=== PATIENT | male | born 1950 | race Caucasian/White ===

== ENCOUNTER 2023-06-13 04:16 | Day surgery (SDC) | payer OTHER ==
[2023-06-07 15:35] VITALS: BMI 29.7
[2023-06-13] MEDS ORDERED: IBUPROFEN 800 MG/8 ML IJ IVPB SCH (16:30)
[2023-06-13] MEDS ORDERED: DEXTROSE 5%-0.45% SALINE 1,000 ML IV SCH (16:30)
[2023-06-13] MEDS ORDERED: LIDOCAINE HCL 1%, 10 MG/ML (20ML VIAL) ONE (16:39)
[2023-06-13] MEDS ORDERED: FENTANYL CITRATE/PF 50 MCG/ML VIAL ONE ×2 (16:43→17:57)
[2023-06-13] MEDS ORDERED: PROPOFOL 40 ML ONE (16:43)
[2023-06-13] MEDS ORDERED: MIDAZOLAM HCL 2 MG/2 ML SINGLE DOSE VIAL ONE (16:43)
[2023-06-13] MEDS ORDERED: SUCCINYLCHOLINE CHLORIDE 200 MG/10 ML SYRINGE ONE (16:45)
[2023-06-13] MEDS: ceFAZolin SODIUM 1 GM VIAL IVPB ONE (16:55)
[2023-06-13] MEDS: LIDOCAINE HCL 1%, 10 MG/ML (50 mL VIAL) NR ONE (17:01)
[2023-06-13] MEDS: ACETAMINOPHEN INJECTION 100 ML IVPB ONE (17:30)
[2023-06-13] MEDS: ACETAMINOPHEN 1000 MG/100 ML BAG IVPB ONE (17:30)
[2023-06-13] MEDS ORDERED: ONDANSETRON 4 MG/2 ML VIAL IVPUSH PRN (17:32)
[2023-06-13] MEDS ORDERED: LACTATED RINGERS SOLUTION 1,000 ML IV SCH (17:45)
[2023-06-13 19:28] VITALS: RESP 16; TEMP 97.5
[2023-06-13 20:03] VITALS: BP 134/78; PULSE 62
== END 2023-06-13 19:40 | disposition home or self-care (01) ==
LOC: JASU-SURG 04:16
PROVIDERS: ATTEND Urology
PROC: 0VB70ZZ Excision of Left Tunica Vaginalis, Open Approach (ICD-10-PCS; principal; 2023-06-13 16:00)
DX: N43.3 Hydrocele, unspecified (principal)
CPT/HCPCS: 82962; 88302-TC; 94760; J0131

== ENCOUNTER 2024-06-24 13:31 | Inpatient (IN) | payer OTHER ==
[2024-06-24 13:43] VITALS: BMI 30.1
[2024-06-24] MEDS: ACETAMINOPHEN 1000 MG/100 ML BAG IVPB ONE (15:21)
[2024-06-24] MEDS: ONDANSETRON 4 MG/2 ML VIAL IVPUSH ONE (15:21)
[2024-06-24] MEDS: SODIUM CHLORIDE 0.9% 500 ML INFUS.BAG IV ONE (15:21)
[2024-06-24] MEDS ORDERED: ACETAMINOPHEN INJECTION 100 ML ONE (15:22)
[2024-06-24] MEDS ORDERED: ONDANSETRON 4 MG/2 ML VIAL ONE (15:22)
[2024-06-24 15:38] LABS: HEMATOCRIT 43.4 % (40.1-51.0); HEMOGLOBIN 15.1 g/dL (13.7-17.5); MCHC 34.8 g/dl (32.3-36.5); MEAN CELL VOLUME 84.4 fl (79.0-92.2); MEAN PLT VOLUME 10.5 fl (9.4-12.4); PLATELET COUNT 230 x10^3/uL (163-337); RDW 12.6 % (12.2-16.6)
[2024-06-24 15:46] LABS: INR 1.07 (0.83-1.09); PROTHROMBIN TIME (PATIENT) 11.7 SEC (9.7-13.0)
[2024-06-24 15:48] LABS: ACTIVATED PTT 31.2 SECONDS (25.2-36.5)
[2024-06-24 16:13] LABS: POTASSIUM 3.7 mmol/L (3.5-5.1)
[2024-06-24 16:16] LABS: ALBUMIN 3.4 g/dl (3.4-5.0); BLOOD UREA NITROGEN 15.1 mg/dL (7-18); CALCIUM 9.4 mg/dL (8.5-10.1)
[2024-06-24 16:19] LABS: CREATININE 1.2 mg/dL (0.55-1.3)
[2024-06-24 16:21] LABS: BILIRUBIN,TOTAL 0.7 mg/dL (0.2-1)
[2024-06-24] MEDS ORDERED: PIPERACILLIN/TAZOB 4.5 GM 4.5 GM/100 ML BAG IVPB ONE (19:24)
[2024-06-24] MEDS: PIPERACILLIN/TAZOB 4.5 GM 4.5 GM in DEXTROSE 5%-WATER 100 ML IVPB ONE (19:57)
[2024-06-24] MEDS ORDERED: metFORMIN HCL 500 MG TABLET (FP) PO SCH (22:00)
[2024-06-24] MEDS: ACETAMINOPHEN 1000 MG/100 ML BAG IVPB PRN (22:30)
[2024-06-24] MEDS: ATORVASTATIN CA 20 MG TABLET (FP) PO SCH (22:32)
[2024-06-24] MEDS: INSULIN ASPART SLIDING SCALE (NOVOLOG) 1 VIAL SQ SCH (22:32)
[2024-06-24] MEDS: SODIUM CHLORIDE 1,000 ML IV STA (22:32)
[2024-06-24] MEDS: amLODIPine BESYLATE 10 MG TABLET (FP) PO ONE (23:05)
[2024-06-25] MEDS: PIPERACILLIN/TAZOB 3.375 GM 3.375 GM in DEXTROSE 5%-WATER - 50 ML IVPB SCH ×2 (01:59→19:32)
[2024-06-25 07:59] LABS: HEMATOCRIT 41.3 % (40.1-51.0); HEMOGLOBIN 14.4 g/dL (13.7-17.5); MCHC 34.9 g/dl (32.3-36.5); MEAN CELL VOLUME 85.2 fl (79.0-92.2); MEAN PLT VOLUME 10.8 fl (9.4-12.4); PLATELET COUNT 219 x10^3/uL (163-337); RDW 12.6 % (12.2-16.6)
[2024-06-25 08:11] LABS: POTASSIUM 3.4 mmol/L (3.5-5.1)
[2024-06-25 08:16] LABS: BLOOD UREA NITROGEN 12.3 mg/dL (7-18); CALCIUM 9.2 mg/dL (8.5-10.1)
[2024-06-25 08:17] LABS: ALBUMIN 3.1 g/dl (3.4-5.0)
[2024-06-25 08:20] LABS: CREATININE 1.1 mg/dL (0.55-1.3)
[2024-06-25 08:21] LABS: BILIRUBIN,TOTAL 1.3 mg/dL (0.2-1)
[2024-06-25 08:22] LABS: TOT PROT 6.6 g/dl (6.4-8.2)
[2024-06-25 08:25] LABS: INR 1.15 (0.83-1.09); PROTHROMBIN TIME (PATIENT) 12.7 SEC (9.7-13.0)
[2024-06-25] MEDS: KCL 10 MEQ IVPB 10 MEQ/100 ML INFUS.BAG IVPB SCH (09:39)
[2024-06-25] MEDS: SODIUM CHLORIDE 1,000 ML IV SCH (12:04)
[2024-06-25] MEDS: POLYETHYLENE GLYCOL (HEALTHYLAX) 3350 17 GM PACKET PO SCH (15:13)
[2024-06-25 15:39] LABS: EPI CELLS 15 /uL (0-25.1); HYALINE CASTS 1 /uL (0-3.1); URINE APPEARANCE CLEAR; URINE BACTERIA 6 /uL (0-1359); URINE BILIRUBIN NEGATIVE (NEGATIVE); URINE COLOR YELLOW; URINE GLUCOSE (UA) TRACE (NEGATIVE); URINE KETONE 2+ (NEGATIVE); URINE LEUK ESTERASE NEGATIVE (NEGATIVE); URINE NITRITE NEGATIVE (NEGATIVE); URINE PROTEIN 3+ (NEGATIVE); URINE WBC 8 /uL (0-25.8)
[2024-06-25 15:46] LABS: URINE RBC 40.3 /uL (0-23.9)
[2024-06-25] MEDS: PIPERACILLIN/TAZOB 3.375 GM 50 ML IVPB SCH (18:12)
[2024-06-25] MEDS: LISINOPRIL 10 MG TABLET PO SCH (21:27)
[2024-06-26] MEDS: ACETAMINOPHEN 1000 MG/100 ML BAG IVPB PRN (08:15)
[2024-06-26 08:17] LABS: BASOPHILS # 0.04 x10^3/uL (0.01-0.08); EOSINOPHIL % 0.1 % (0.8-7.0); EOSINOPHILS # 0.01 x10^3/uL (0.04-0.54); HEMATOCRIT 42.5 % (40.1-51.0); HEMOGLOBIN 14.6 g/dL (13.7-17.5); MCHC 34.4 g/dl (32.3-36.5); MEAN CELL VOLUME 84.5 fl (79.0-92.2); MEAN PLT VOLUME 10.9 fl (9.4-12.4); MONOCYTE # 0.67 x10^3/uL (0.30-0.82); MONOCYTE % 3.8 % (5.3-12.2); PLATELET COUNT 266 x10^3/uL (163-337); RDW 12.7 % (12.2-16.6)
[2024-06-26 08:37] LABS: MAGNESIUM 1.7 mg/dL (1.8-2.4)
[2024-06-26 08:38] LABS: BLOOD UREA NITROGEN 12.4 mg/dL (7-18); CALCIUM 8.9 mg/dL (8.5-10.1)
[2024-06-26 08:41] LABS: CREATININE 1.2 mg/dL (0.55-1.3)
[2024-06-26 08:42] LABS: BILIRUBIN,TOTAL 1.7 mg/dL (0.2-1)
[2024-06-26] MEDS: amLODIPine BESYLATE 10 MG TABLET (FP) PO SCH (09:09)
[2024-06-26] MEDS: KCL 10 MEQ IVPB 10 MEQ/100 ML INFUS.BAG IVPB SCH (10:56)
[2024-06-26] MEDS: MAGNESIUM 2GM/50ML STERILE WATER IVPB IVPB ONE ×2 (13:15→14:34)
[2024-06-26] MEDS: PEG 3350/NA SULF BICARB CL/KCL 4000 ML SOLN.RECON PO ONE (17:29)
[2024-06-27 08:20] LABS: ABSOLUTE IMMATURE GRANULOCYTES 0.08 x10^3/uL (0.0-0.031); BASOPHILS # 0.02 x10^3/uL (0.01-0.08); EOSINOPHIL % 0.5 % (0.8-7.0); EOSINOPHILS # 0.06 x10^3/uL (0.04-0.54); HEMATOCRIT 35.3 % (40.1-51.0); HEMOGLOBIN 12.1 g/dL (13.7-17.5); INR 1.27 (0.83-1.09); MCHC 34.3 g/dl (32.3-36.5); MEAN CELL VOLUME 84.9 fl (79.0-92.2); MEAN PLT VOLUME 10.3 fl (9.4-12.4); MONOCYTE # 0.63 x10^3/uL (0.30-0.82); MONOCYTE % 4.9 % (5.3-12.2); PLATELET COUNT 228 x10^3/uL (163-337); RDW 12.6 % (12.2-16.6)
[2024-06-27 08:36] LABS: CHLORIDE 108 mmol/L (98-107); SODIUM 142 mmol/L (136-145)
[2024-06-27 08:39] LABS: BLOOD UREA NITROGEN 10.2 mg/dL (7-18); CALCIUM 8.5 mg/dL (8.5-10.1)
[2024-06-27 08:40] LABS: CO2 27 mmol/L (21-32); GLUCOSE,RANDOM 163 mg/dL (74-106); MAGNESIUM 1.9 mg/dL (1.8-2.4)
[2024-06-27 08:43] LABS: SGOT/AST 13 U/L (15-37); SGPT/ALT 18 U/L (13-61)
[2024-06-27 08:45] LABS: BILIRUBIN,TOTAL 0.6 mg/dL (0.2-1); TOT PROT 5.7 g/dl (6.4-8.2)
[2024-06-27 08:46] LABS: ALBUMIN 2.4 g/dl (3.4-5.0); ALK PHOS 47 U/L (45-117); ANION GAP 7 mmol/L (4-13); POTASSIUM 2.6 mmol/L (3.5-5.1)
[2024-06-27] MEDS: KCL 10 MEQ IVPB 10 MEQ/100 ML INFUS.BAG IVPB SCH (09:27)
[2024-06-27 11:10] LABS: CARCINOEMBRYONIC ANTIGEN 11.2 ng/mL (0.0-4.7)
[2024-06-27 16:47] LABS: POTASSIUM 3.4 mmol/L (3.5-5.1)
[2024-06-27 16:49] LABS: ALBUMIN 2.5 g/dl (3.4-5.0); BLOOD UREA NITROGEN 10.6 mg/dL (7-18); CALCIUM 8.8 mg/dL (8.5-10.1)
[2024-06-27 16:53] LABS: CREATININE 1.3 mg/dL (0.55-1.3)
[2024-06-27 16:54] LABS: BILIRUBIN,TOTAL 0.6 mg/dL (0.2-1); TOT PROT 6.1 g/dl (6.4-8.2)
[2024-06-27] MEDS: POTASSIUM CHLORIDE ORAL LIQUID 20 MEQ/15 ML PO ONE (18:23)
[2024-06-27] MEDS: ACETAMINOPHEN 1000 MG/100 ML BAG IVPB PRN (21:34)
[2024-06-28 08:11] LABS: BASOPHILS # 0.02 x10^3/uL (0.01-0.08); EOSINOPHIL % 1.8 % (0.8-7.0); EOSINOPHILS # 0.22 x10^3/uL (0.04-0.54); HEMATOCRIT 35.4 % (40.1-51.0); HEMOGLOBIN 12.5 g/dL (13.7-17.5); MCHC 35.3 g/dl (32.3-36.5); MEAN CELL VOLUME 84.7 fl (79.0-92.2); MONOCYTE # 0.69 x10^3/uL (0.30-0.82); MONOCYTE % 5.8 % (5.3-12.2); PLATELET COUNT 279 x10^3/uL (163-337); RDW 12.6 % (12.2-16.6)
[2024-06-28 08:44] LABS: CALCIUM 8.4 mg/dL (8.5-10.1)
[2024-06-28 08:45] LABS: ALBUMIN 2.3 g/dl (3.4-5.0); BLOOD UREA NITROGEN 11.7 mg/dL (7-18); MAGNESIUM 1.8 mg/dL (1.8-2.4)
[2024-06-28 08:48] LABS: CREATININE 1.1 mg/dL (0.55-1.3)
[2024-06-28 08:50] LABS: BILIRUBIN,TOTAL 0.6 mg/dL (0.2-1); TOT PROT 5.6 g/dl (6.4-8.2)
[2024-06-28] MEDS: POTASSIUM CHLORIDE ORAL LIQUID 20 MEQ/15 ML PO ONE (10:55)
[2024-06-28] MEDS: HEPARIN NA (PORCINE) 5,000 UNITS/ML 1ML VIAL SQ SCH (21:12)
[2024-06-29] MEDS: ACETAMINOPHEN 1000 MG/100 ML BAG IVPB PRN (02:18)
[2024-06-29 08:52] LABS: ABSOLUTE IMMATURE GRANULOCYTES 0.05 x10^3/uL (0.0-0.031); BASOPHILS # 0.05 x10^3/uL (0.01-0.08); EOSINOPHIL % 3.1 % (0.8-7.0); EOSINOPHILS # 0.32 x10^3/uL (0.04-0.54); HEMATOCRIT 38.9 % (40.1-51.0); HEMOGLOBIN 12.9 g/dL (13.7-17.5); MCHC 33.2 g/dl (32.3-36.5); MEAN CELL VOLUME 88.2 fl (79.0-92.2); MEAN PLT VOLUME 10.6 fl (9.4-12.4); MONOCYTE # 0.72 x10^3/uL (0.30-0.82); MONOCYTE % 6.9 % (5.3-12.2); PLATELET COUNT 245 x10^3/uL (163-337); RDW 12.8 % (12.2-16.6)
[2024-06-29 09:06] LABS: CHLORIDE 104 mmol/L (98-107); SODIUM 138 mmol/L (136-145)
[2024-06-29 09:21] LABS: ALBUMIN 2.2 g/dl (3.4-5.0); BLOOD UREA NITROGEN 12.3 mg/dL (7-18); CALCIUM 8.5 mg/dL (8.5-10.1); CO2 26 mmol/L (21-32); GLUCOSE,RANDOM 254 mg/dL (74-106); MAGNESIUM 1.6 mg/dL (1.8-2.4)
[2024-06-29 09:24] LABS: SGPT/ALT 17 U/L (13-61)
[2024-06-29 09:25] LABS: SGOT/AST 17 U/L (15-37)
[2024-06-29 09:26] LABS: ANION GAP 8 mmol/L (4-13); BILIRUBIN,TOTAL 0.6 mg/dL (0.2-1); POTASSIUM 2.9 mmol/L (3.5-5.1); TOT PROT 5.5 g/dl (6.4-8.2)
[2024-06-29 09:27] LABS: ALK PHOS 47 U/L (45-117)
[2024-06-29] MEDS: POTASSIUM CHLORIDE TABS 20 MEQ TABLET.ER (FP) PO ONE (10:33)
[2024-06-29] MEDS: KCL 10 MEQ IVPB 10 MEQ/100 ML INFUS.BAG IVPB SCH (11:11)
[2024-06-29] MEDS: MAGNESIUM 1GM/D5W 100ML - 100 ML IVPB IVPB ONE (12:25)
[2024-06-30 08:16] LABS: BASOPHILS # 0.03 x10^3/uL (0.01-0.08); EOSINOPHIL % 2.3 % (0.8-7.0); EOSINOPHILS # 0.31 x10^3/uL (0.04-0.54); HEMATOCRIT 38.1 % (40.1-51.0); HEMOGLOBIN 13.3 g/dL (13.7-17.5); MCHC 34.9 g/dl (32.3-36.5); MEAN CELL VOLUME 84.1 fl (79.0-92.2); MEAN PLT VOLUME 10.2 fl (9.4-12.4); MONOCYTE # 0.82 x10^3/uL (0.30-0.82); MONOCYTE % 6.1 % (5.3-12.2); PLATELET COUNT 326 x10^3/uL (163-337); RDW 12.5 % (12.2-16.6)
[2024-06-30 08:36] LABS: POTASSIUM 3.1 mmol/L (3.5-5.1)
[2024-06-30 08:39] LABS: ALBUMIN 2.5 g/dl (3.4-5.0); BLOOD UREA NITROGEN 9.9 mg/dL (7-18); MAGNESIUM 1.8 mg/dL (1.8-2.4)
[2024-06-30 08:42] LABS: CREATININE 0.9 mg/dL (0.55-1.3)
[2024-06-30 08:44] LABS: BILIRUBIN,TOTAL 0.4 mg/dL (0.2-1); TOT PROT 6.2 g/dl (6.4-8.2)
[2024-06-30] MEDS: POTASSIUM CHLORIDE TABS 20 MEQ TABLET.ER (FP) PO SCH (09:17)
[2024-07-01 09:19] LABS: MEAN PLT VOLUME 9.6 fl (9.4-12.4)
[2024-07-01 09:21] LABS: HEMATOCRIT 41.5 % (40.1-51.0); MCHC 33.7 g/dl (32.3-36.5); MEAN CELL VOLUME 85.7 fl (79.0-92.2); PLATELET COUNT 441 x10^3/uL (163-337); RDW 12.7 % (12.2-16.6)
[2024-07-01 09:27] LABS: INR 1.26 (0.83-1.09); PROTHROMBIN TIME (PATIENT) 13.9 SEC (9.7-13.0)
[2024-07-01 09:42] LABS: POTASSIUM 4.2 mmol/L (3.5-5.1)
[2024-07-01 09:50] LABS: BLOOD UREA NITROGEN 12.4 mg/dL (7-18); CALCIUM 9.2 mg/dL (8.5-10.1)
[2024-07-01 09:54] LABS: CREATININE 1.1 mg/dL (0.55-1.3)
[2024-07-01] MEDS: POLYETHYLENE GLYCOL 3350 255 GM BTL PO ONE (10:12)
[2024-07-01] MEDS: metroNIDAZOLE 500 MG TABLET PO SCH (12:41)
[2024-07-01] MEDS: NEOMYCIN SO4 500 MG TABLET PO SCH (12:41)
[2024-07-01] MEDS: BISACODYL 5 MG TABLET.DR (FP) PO ONE (15:59)
[2024-07-02 08:30] LABS: ABSOLUTE IMMATURE GRANULOCYTES 0.09 x10^3/uL (0.0-0.031); BASOPHILS # 0.05 x10^3/uL (0.01-0.08); EOSINOPHIL % 1.3 % (0.8-7.0); EOSINOPHILS # 0.16 x10^3/uL (0.04-0.54); HEMATOCRIT 42.7 % (40.1-51.0); HEMOGLOBIN 14.7 g/dL (13.7-17.5); MCHC 34.4 g/dl (32.3-36.5); MEAN CELL VOLUME 84.1 fl (79.0-92.2); MEAN PLT VOLUME 9.3 fl (9.4-12.4); MONOCYTE % 6.3 % (5.3-12.2); PLATELET COUNT 498 x10^3/uL (163-337); RDW 12.4 % (12.2-16.6)
[2024-07-02 08:35] LABS: INR 1.27 (0.83-1.09); PROTHROMBIN TIME (PATIENT) 13.8 SEC (9.7-13.0)
[2024-07-02 08:37] LABS: ACTIVATED PTT 34.6 SECONDS (25.2-36.5)
[2024-07-02 08:47] LABS: POTASSIUM 3.3 mmol/L (3.5-5.1)
[2024-07-02 08:52] LABS: BLOOD UREA NITROGEN 11.5 mg/dL (7-18); CALCIUM 9.2 mg/dL (8.5-10.1); MAGNESIUM 1.9 mg/dL (1.8-2.4)
[2024-07-02 08:56] LABS: CREATININE 1.1 mg/dL (0.55-1.3); PHOSPHOROUS 3.7 mg/dL (2.5-4.9)
[2024-07-02] MEDS ORDERED: ACETAMINOPHEN INJECTION 100 ML ONE (11:44)
[2024-07-02] MEDS ORDERED: SUCCINYLCHOLINE CHLORIDE 200 MG/10 ML SYRINGE ONE (11:49)
[2024-07-02] MEDS ORDERED: ROCURONIUM BROMIDE 50 MG/5 ML SYRINGE ONE ×2 (11:49→16:52)
[2024-07-02] MEDS ORDERED: MIDAZOLAM HCL 2 MG/2 ML SINGLE DOSE VIAL ONE (15:24)
[2024-07-02] MEDS ORDERED: PROPOFOL 20 ML ONE ×2 (15:26→17:50)
[2024-07-02] MEDS ORDERED: HEPARIN NA (PORCINE) 5,000 UNITS/ML 1ML VIAL ONE (15:31)
[2024-07-02] MEDS ORDERED: cefOXitin SODIUM 2 GM VIAL (RESTRICTED TO ID) IVPB ONE (15:31)
[2024-07-02] MEDS: cefOXitin SODIUM 2 GM VIAL (RESTRICTED TO ID) IVPB ONE ×2 (16:35)
[2024-07-02] MEDS ORDERED: KETAMINE HCL 200 MG/20 ML VIAL ONE (17:46)
[2024-07-02] MEDS ORDERED: NEOSTIGMINE METHYLSULFATE 0.5 MG/1 ML - 10 ML MDV ONE (19:20)
[2024-07-02] MEDS: BUPIVACAINE HCL/PF 0.25% (2.5MG/ML) 10 ML VIAL IJ ONE ×3 (19:20)
[2024-07-02] MEDS ORDERED: HYDROmorphone HCl 2 MG/ML VIAL ONE (19:44)
[2024-07-02] MEDS ORDERED: ONDANSETRON 4 MG/2 ML VIAL IVPUSH PRN ×4 (20:01→20:38)
[2024-07-02] MEDS ORDERED: LACTATED RINGERS SOLUTION 1,000 ML IV SCH (20:15)
[2024-07-02] MEDS ORDERED: HYDROmorphone *PCA* 10MG/50ML DISP.SYRIN PCA SCH (20:15)
[2024-07-02] MEDS: HYDROmorphone *PCA* 10MG/50ML DISP.SYRIN PCA SCH ×2 (20:20→20:33)
[2024-07-02] MEDS ORDERED: HYDROmorphone *PCA* 10MG/50ML DISP.SYRIN ONE (20:22)
[2024-07-02] MEDS: ACETAMINOPHEN 1000 MG/100 ML BAG IVPB SCH (20:23)
[2024-07-02] MEDS: LACTATED RINGERS SOLUTION 1,000 ML IV SCH ×2 (20:37→21:06)
[2024-07-02] MEDS: INSULIN ASPART SLIDING SCALE (NOVOLOG) 1 VIAL SQ SCH (21:25)
[2024-07-02] MEDS ORDERED: ATORVASTATIN CA 20 MG TABLET (FP) PO SCH (22:00)
[2024-07-02] MEDS ORDERED: INSULIN ASPART SLIDING SCALE (NOVOLOG) 1 VIAL SQ SCH (22:00)
[2024-07-02] MEDS ORDERED: LISINOPRIL 10 MG TABLET PO SCH (22:00)
[2024-07-02] MEDS: LISINOPRIL 10 MG TABLET PO SCH (22:50)
[2024-07-02] MEDS: ATORVASTATIN CA 20 MG TABLET (FP) PO SCH (22:50)
[2024-07-03] MEDS: ACETAMINOPHEN 1000 MG/100 ML BAG IVPB SCH (02:17)
[2024-07-03] MEDS: CEFOXITIN SODIUM/DEXTROSE,ISO 2 GM/50 ML BAG IVPB SCH ×2 (03:23→07:27)
[2024-07-03] MEDS: WATER IVPB SCH (05:00)
[2024-07-03] MEDS: CEFOXITIN SODIUM IVPB SCH (05:00)
[2024-07-03] MEDS: DEXTROSE 5% IVPB SCH (05:00)
[2024-07-03 08:58] LABS: ABSOLUTE IMMATURE GRANULOCYTES 0.12 x10^3/uL (0.0-0.031); BASOPHILS # 0.04 x10^3/uL (0.01-0.08); HEMATOCRIT 39.9 % (40.1-51.0); HEMOGLOBIN 13.8 g/dL (13.7-17.5); MCHC 34.6 g/dl (32.3-36.5); MEAN CELL VOLUME 84.7 fl (79.0-92.2); MEAN PLT VOLUME 9.4 fl (9.4-12.4); MONOCYTE # 0.93 x10^3/uL (0.30-0.82); PLATELET COUNT 460 x10^3/uL (163-337); RDW 12.4 % (12.2-16.6)
[2024-07-03 09:19] LABS: POTASSIUM 3.8 mmol/L (3.5-5.1)
[2024-07-03 09:26] LABS: ALBUMIN 2.2 g/dl (3.4-5.0); CALCIUM 8.5 mg/dL (8.5-10.1)
[2024-07-03 09:27] LABS: MAGNESIUM 1.8 mg/dL (1.8-2.4)
[2024-07-03 09:29] LABS: CREATININE 1.2 mg/dL (0.55-1.3)
[2024-07-03 09:30] LABS: PHOSPHOROUS 4.3 mg/dL (2.5-4.9)
[2024-07-03 09:31] LABS: BILIRUBIN,TOTAL 0.4 mg/dL (0.2-1); TOT PROT 5.6 g/dl (6.4-8.2)
[2024-07-03] MEDS: amLODIPine BESYLATE 10 MG TABLET (FP) PO SCH (09:58)
[2024-07-03] MEDS: ACETAMINOPHEN 500 MG TABLET (FP) PO SCH (09:58)
[2024-07-03] MEDS ORDERED: amLODIPine BESYLATE 10 MG TABLET (FP) PO SCH (10:00)
[2024-07-03] MEDS ORDERED: HEPARIN NA (PORCINE) 5,000 UNITS/ML 1ML VIAL SQ SCH ×2 (14:00)
[2024-07-03] MEDS: KETOROLAC TROMETHAMINE 15 MG/ML VIAL IVPUSH PRN (14:13)
[2024-07-03] MEDS ORDERED: ACETAMINOPHEN 500 MG TABLET (FP) PO PRN ×2 (14:15)
[2024-07-03] MEDS: INSULIN ASPART SLIDING SCALE (NOVOLOG) 1 VIAL SQ SCH (17:47)
[2024-07-04 08:29] LABS: ABSOLUTE IMMATURE GRANULOCYTES 0.09 x10^3/uL (0.0-0.031); BASOPHILS # 0.02 x10^3/uL (0.01-0.08); EOSINOPHIL % 0.7 % (0.8-7.0); EOSINOPHILS # 0.11 x10^3/uL (0.04-0.54); HEMATOCRIT 36.8 % (40.1-51.0); HEMOGLOBIN 12.7 g/dL (13.7-17.5); MCHC 34.5 g/dl (32.3-36.5); MEAN CELL VOLUME 85.6 fl (79.0-92.2); MEAN PLT VOLUME 9.2 fl (9.4-12.4); MONOCYTE # 0.83 x10^3/uL (0.30-0.82); MONOCYTE % 5.3 % (5.3-12.2); PLATELET COUNT 458 x10^3/uL (163-337); RDW 12.7 % (12.2-16.6)
[2024-07-04 08:44] LABS: POTASSIUM 3.3 mmol/L (3.5-5.1)
[2024-07-04 08:46] LABS: CALCIUM 8.4 mg/dL (8.5-10.1)
[2024-07-04 08:47] LABS: ALBUMIN 2.2 g/dl (3.4-5.0); MAGNESIUM 1.9 mg/dL (1.8-2.4)
[2024-07-04 08:50] LABS: CREATININE 1.1 mg/dL (0.55-1.3); PHOSPHOROUS 2.1 mg/dL (2.5-4.9)
[2024-07-04 08:52] LABS: BILIRUBIN,TOTAL 0.4 mg/dL (0.2-1); TOT PROT 5.6 g/dl (6.4-8.2)
[2024-07-04] MEDS: POTASSIUM CHLORIDE ORAL LIQUID 20 MEQ/15 ML PO SCH (10:38)
[2024-07-04] MEDS: CEFOXITIN SODIUM 2 GM in DEXTROSE 5%-WATER 100 ML IVPB SCH (10:39)
[2024-07-04] MEDS: NAPH,MB-DB/K PH,MBDB POWDER PACKET PO SCH (10:39)
[2024-07-04] MEDS ORDERED: oxyCODONE HCL 5 MG TABLET PO PRN ×2 (11:23)
[2024-07-04] MEDS: KETOROLAC TROMETHAMINE 15 MG/ML VIAL IVPUSH SCH (17:17)
[2024-07-05 08:39] LABS: ABSOLUTE IMMATURE GRANULOCYTES 0.06 x10^3/uL (0.0-0.031); BASOPHILS # 0.02 x10^3/uL (0.01-0.08); EOSINOPHIL % 2.1 % (0.8-7.0); EOSINOPHILS # 0.28 x10^3/uL (0.04-0.54); HEMATOCRIT 35.8 % (40.1-51.0); HEMOGLOBIN 12.3 g/dL (13.7-17.5); MCHC 34.4 g/dl (32.3-36.5); MEAN CELL VOLUME 85.6 fl (79.0-92.2); MEAN PLT VOLUME 9.3 fl (9.4-12.4); MONOCYTE # 0.76 x10^3/uL (0.30-0.82); MONOCYTE % 5.8 % (5.3-12.2); PLATELET COUNT 427 x10^3/uL (163-337); RDW 12.3 % (12.2-16.6)
[2024-07-05 09:09] LABS: POTASSIUM 3.2 mmol/L (3.5-5.1)
[2024-07-05 09:29] LABS: ALBUMIN 2.1 g/dl (3.4-5.0); BLOOD UREA NITROGEN 9.4 mg/dL (7-18); CALCIUM 8.6 mg/dL (8.5-10.1); MAGNESIUM 1.8 mg/dL (1.8-2.4)
[2024-07-05 09:32] LABS: CREATININE 0.8 mg/dL (0.55-1.3)
[2024-07-05 09:33] LABS: PHOSPHOROUS 2.4 mg/dL (2.5-4.9)
[2024-07-05 09:34] LABS: BILIRUBIN,TOTAL 0.4 mg/dL (0.2-1); TOT PROT 5.4 g/dl (6.4-8.2)
[2024-07-05] MEDS: POTASSIUM CHLORIDE ORAL LIQUID 20 MEQ/15 ML PO SCH (10:14)
[2024-07-05] MEDS: MAGNESIUM OXIDE 400 MG TABLET (FP) PO ONE (10:15)
[2024-07-05] MEDS: ENOXAPARIN NA (PORCINE) 40 MG/0.4 ML DISP.SYRIN SQ SCH (11:10)
[2024-07-06 02:10] VITALS: RESP 18
[2024-07-06 06:21] VITALS: TEMP 97.9
[2024-07-06 10:36] LABS: ABSOLUTE IMMATURE GRANULOCYTES 0.06 x10^3/uL (0.0-0.031); BASOPHILS # 0.03 x10^3/uL (0.01-0.08); EOSINOPHIL % 2.5 % (0.8-7.0); HEMATOCRIT 37.3 % (40.1-51.0); HEMOGLOBIN 12.6 g/dL (13.7-17.5); MCHC 33.8 g/dl (32.3-36.5); MEAN CELL VOLUME 85.9 fl (79.0-92.2); MEAN PLT VOLUME 9.4 fl (9.4-12.4); MONOCYTE # 0.66 x10^3/uL (0.30-0.82); MONOCYTE % 5.5 % (5.3-12.2); PLATELET COUNT 494 x10^3/uL (163-337); RDW 12.3 % (12.2-16.6)
[2024-07-06 11:03] LABS: POTASSIUM 3.6 mmol/L (3.5-5.1)
[2024-07-06 11:25] LABS: ALBUMIN 2.3 g/dl (3.4-5.0); BLOOD UREA NITROGEN 11.1 mg/dL (7-18); CALCIUM 8.4 mg/dL (8.5-10.1)
[2024-07-06 11:26] LABS: MAGNESIUM 1.9 mg/dL (1.8-2.4)
[2024-07-06 11:28] LABS: PHOSPHOROUS 2.4 mg/dL (2.5-4.9)
[2024-07-06 11:30] LABS: BILIRUBIN,TOTAL 0.3 mg/dL (0.2-1)
[2024-07-06 14:29] VITALS: BP 147/73; PULSE 79
== END 2024-07-06 16:54 | disposition home or self-care (01) | DRG 330 ==
LOC: JER 13:31 → JERBED 19:19 → J8W 21:57
PROVIDERS: ADMIT Hospitalist; ATTEND Nurse Practitioner Family
PROC: 0DBH8ZX Excision of Cecum, Via Natural or Artificial Opening Endoscopic, Diagnostic (ICD-10-PCS; 2024-07-02)
PROC: 0DTF0ZZ Resection of Right Large Intestine, Open Approach (ICD-10-PCS; principal; 2024-07-02 13:15)
DX: D49.0 Neoplasm of unspecified behavior of digestive system (principal); K35.80 Unspecified acute appendicitis; R10.31 Right lower quadrant pain; I10 Essential (primary) hypertension; E11.9 Type 2 diabetes mellitus without complications; E78.5 Hyperlipidemia, unspecified; N30.90 Cystitis, unspecified without hematuria; K63.89 Other specified diseases of intestine; G89.18 Other acute postprocedural pain; R59.9 Enlarged lymph nodes, unspecified
CPT/HCPCS: 36415; 71250-TC; 74177-TC; 76705-TC; 80048; 80053; 81003; 82105; 82378; 82384; 82962; 83036; 83735; 83835; 84100; 84132; 84484; 85025; 85027; 85610; 85730; 86140; 86301; 86850; 86900; 86901; 87040; 87081; 87086; 88305-TC; 88307-TC; 88341-TC; 88342-TC; 93005; 93010; 93306-TC; 94760; 99285-25; J0131; J1644

== ENCOUNTER 2024-10-03 09:40 | Day surgery (SDC) | payer OTHER ==
[2024-10-03 10:09] LABS: ABSOLUTE IMMATURE GRANULOCYTES 0.03 x10^3/uL (0.0-0.031); BASOPHILS # 0.02 x10^3/uL (0.01-0.08); EOSINOPHIL % 2.3 % (0.8-7.0); EOSINOPHILS # 0.22 x10^3/uL (0.04-0.54); MCHC 34.6 g/dl (32.3-36.5); MEAN CELL VOLUME 84.1 fl (79.0-92.2); MEAN PLT VOLUME 9.9 fl (9.4-12.4); MONOCYTE # 0.49 x10^3/uL (0.30-0.82); MONOCYTE % 5.2 % (5.3-12.2); RDW 12.6 % (12.2-16.6)
[2024-10-03] MEDS: SODIUM CHLORIDE 250 ML IV ONE (10:15)
[2024-10-03 11:03] LABS: CO2 29.0 mmol/L (21-32); GLUCOSE,RANDOM 270.0 mg/dL (74-106)
[2024-10-03 11:07] LABS: CREATININE 1.3 mg/dL (0.55-1.3); SGOT/AST 16.0 U/L (15-37); SGPT/ALT 34.0 U/L (13-61)
[2024-10-03 11:08] LABS: TOT PROT 7.6 g/dl (6.4-8.2)
[2024-10-03 11:09] LABS: ALK PHOS 46.0 U/L (45-117)
[2024-10-03] MEDS: DEXAMETHASONE SODIUM PHOSPHATE 10 MG in SODIUM CHLORIDE 50 ML IVPB ONE (11:22)
[2024-10-03] MEDS: PALONOSETRON HCL 0.25 MG/5 ML VIAL IVPUSH ONE (11:26)
[2024-10-03] MEDS: PORTA CATH FLUSH 10 ML IVPUSH PRN (14:20)
[2024-10-03 16:07] VITALS: RESP 18; TEMP 97.8
[2024-10-03 16:13] VITALS: BP 157/79; PULSE 70
== END 2024-10-03 14:20 | disposition home or self-care (01) ==
LOC: JONCCHEMO 09:40 → J7W 09:41 → JONCCHEMO 14:20
PROVIDERS: ATTEND Internal Medicine Hematology & Oncology
DX: Z51.11 Encounter for antineoplastic chemotherapy (principal); C18.2 Malignant neoplasm of ascending colon
CPT/HCPCS: 36415; 80048; 80076; 85025; 96375; 96413; 96415; J9263